=== PATIENT | male | born 2000 | race Caucasian/White ===

== ENCOUNTER 2025-04-06 07:51 | Emergency (ER) | payer SELFPAY ==
[2025-04-06 07:52] VITALS: BP 139/81; PULSE 92; RESP 18; TEMP 36.7; O2SAT 100
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
[2025-04-06] MEDS: Diph,Pertuss(Acell),Tet Vac/Pf 0.5 ML SYR IM (09:12)
[2025-04-06 09:20] VITALS: BP 133/76; PULSE 67; RESP 16; O2SAT 100
--- NOTE | 2025-04-09 08:02 | ED.PROG_ITS ---
Date of service: 04/06/25 Time of Service: 08:30 Procedure Abscess Drainage Provider that performed the procedure: Herb Ann Discharge Plan Disposition Patient Disposition: Home Discharge Details Clinical Impression: Periorbital ecchymosis of left eye, Laceration of scalp, Immunization, tetanus- diphtheria, Abrasion of sclera of left eye, Corneal abrasion, left, Strain of right biceps Primary Care Provider: None,None ED Provider: Herb Ann Home Meds and New Rx's Prescriptions: New neomycin-polymyxin B-dexameth [Maxitrol] 3.5 mg/g-10,000 unit/g-0.1 % ointment 1 applic ophthalmic (eye) QID 5 Days Qty: 3.5 0RF Discharge Instructions Instructions: Eye Contusion (DC) Additional Instructions: You are seen in the emergency department discomfort. You have a corneal abrasion and scleral abrasion for which you are receiving eye ointment which you should use as directed. Please call?the [facility] to arrange for follow-up tomorrow: [address] [place] [address] , [place] [address] Please use this eye ointment as directed. Please return if you develop worsening pain any confusion or any nausea vomiting does not stop. You were head CT if you begin vomiting or have any any other concerns please return to the emergency department. For your pain please take medications as follows: 1. Take acetaminophen (Tylenol), 1,000 mg (two 500 mg tabs) every 6 hours [2. Take ibuprofen (Advil), 400 mg every 6 hours.] Discharge Data Discharge Date/Time-TO BE ENTERED AT DEPARTURE: 04/06/25 09:23 POCUS Exam (ED) Limited Soft Tissue Exam DATE OF EXAM: 04/06/25 TIME OF EXAM: 08:30 PROVIDER THAT PERFORMED THE STUDY: Herb Ann LOCATION OF EXAM: Upper extremity/right REASON FOR EXAM: Pain Exam Complete DIFFERENTIAL DIAGNOSES: No obvious tendon disruption. No cobblestoning. No fluid collections.
== END 2025-04-06 09:23 | disposition home or self-care (01) ==
PROVIDERS: Emergency Provider Emergency Medicine
DX: S00.12XA Contusion of left eyelid and periocular area, initial encounter (principal); S01.01XA Laceration without foreign body of scalp, initial encounter; S05.02XA Injury of conjunctiva and corneal abrasion without foreign body, left eye, initial encounter; S46.211A Strain of muscle, fascia and tendon of other parts of biceps, right arm, initial encounter; Z23 Encounter for immunization
CPT/HCPCS: 00123; 76882; 90471; 90715; 99284; 99283